=== PATIENT | female | born 1975 | race Caucasian/White ===

== ENCOUNTER 2017-02-14 23:20 | Emergency (ER) | payer SELFPAY ==
[~2017-02-14] VITALS: Ht 154.9 cm; Wt 80.0 kg
[2017-02-15] MEDS ORDERED: SODIUM CHLORIDE 0.9% 1,000 ML IV ONE (01:51)
[2017-02-15 02:33] LABS: NT PRO B-TYPE NATRIURETIC PEP 71 pg/mL (5-125); TROPONIN I < 0.02 ng/mL (0.00-0.04)
[2017-02-15 02:51] LABS: BASOPHILS % 0.9 % (0.0-2.0); DIFFERENTIAL COMMENT 0; EOSINOPHILS % 1.5 % (0.0-5.0); HEMATOCRIT. 41.8 % (36.0-48.0); HEMOGLOBIN. 13.6 g/dL (12.0-16.0); LYMPHOCYTES % 33.9 % (20.0-50.0); MEAN CORPUSCULAR HEMOGLOBIN 25.1 pg (28.0-32.0); MEAN CORPUSCULAR HGB CONC 32.6 g/dL (31.0-37.0); MEAN PLATELET VOLUME 11.2 fl (7.4-10.4); MONOCYTES % 6.7 % (2.0-8.0); PLATELET 135 x1000/uL (130-400); RED BLOOD CELL COUNT 5.42 mill/uL (4.2-5.4); RED CELL DISTRIBUTION WIDTH 14.4 % (11.6-14.6); WHITE BLOOD COUNT 11.8 x1000/uL (4.5-11.0)
[2017-02-15 03:08] LABS: GLUCOSE URINE 3+ (NEGATIVE); KETONES URINE NEGATIVE (NEGATIVE); LEUKOCYTE ESTERASE URINE NEGATIVE (NEGATIVE); NITRITE URINE NEGATIVE (NEGATIVE); OCCULT BLOOD URINE NEGATIVE (NEGATIVE); PH URINE 7.5 (4.5-8.0); PROTEIN URINE NEGATIVE (NEGATIVE); SPECIFIC GRAVITY URINE 1.029 (1.005-1.030)
[2017-02-15 03:09] LABS: CLARITY URINE CLEAR (CLEAR); COLOR URINE YELLOW (YELLOW)
[2017-02-15] MEDS ORDERED: KETOROLAC 30MG/ML VIAL IV ONE (03:45)
[2017-02-15 03:59] LABS: ALANINE AMINOTRANSFERASE 40 IU/L (13-61); ALBUMIN 3.4 g/dL (3.4-5.0); CALCIUM 8.6 mg/dL (8.5-10.1); CARBON DIOXIDE 23 mEq/L (21-32); CHLORIDE 101 mEq/L (98-107); INDEX HEMOLYSI 1 (1-3); INDEX ICTERIC 1 (1-4); INDEX LIPEMIC 1 (1-3); UREA NITROGEN BLOOD 8 mg/dL (7-21); eGFR > 60 mL/min (>60)
[2017-02-15 04:02] LABS: ANION GAP 16
[2017-02-15 04:31] VITALS: BP 115/75
[2017-02-15 04:51] LABS: SQUAMOUS EPITHELIAL CELL URINE FEW /lpf (RARE/1+)
[2017-02-15 04:52] LABS: RBC URINE 0-2 /hpf (0-2)
[2017-02-15 04:54] LABS: BACTERIA URINE TRACE
== END 2017-02-15 06:30 | disposition home or self-care (01) ==
LOC: ER 23:21
DX: R21 Rash and other nonspecific skin eruption (principal); R73.9 Hyperglycemia, unspecified; E11.65 Type 2 diabetes mellitus with hyperglycemia; R55 Syncope and collapse; F17.200 Nicotine dependence, unspecified, uncomplicated; R51 Headache
CPT/HCPCS: 36415; 71010; 80053; 81001; 82962; 83880; 84484; 85025; 93005; 96361; 96374; 99285; J1885; J7030; Z7610

== ENCOUNTER 2019-03-25 19:31 | Emergency (ER) | payer MEDICAID ==
[~2019-03-25] VITALS: Ht 149.9 cm; Wt 78.6 kg
[2019-03-25 20:23] LABS: CLARITY URINE CLEAR (CLEAR); COLOR URINE YELLOW (YELLOW); KETONES URINE NEGATIVE (NEGATIVE); LEUKOCYTE ESTERASE URINE NEGATIVE (NEGATIVE); NITRITE URINE POSITIVE (NEGATIVE); OCCULT BLOOD URINE TRACE (NEGATIVE); PH URINE 6.5 (4.5-8.0); PROTEIN URINE NEGATIVE (NEGATIVE); SPECIFIC GRAVITY URINE 1.038 (1.005-1.030)
[2019-03-25] MEDS ORDERED: ACETAMINOPHEN 325MG TABLET PO ONE (22:45)
[2019-03-26 00:49] VITALS: BP 124/72
== END 2019-03-26 02:08 | disposition home or self-care (01) ==
LOC: ER 19:31
DX: S06.0X0A Concussion without loss of consciousness, initial encounter (principal); S40.022A Contusion of left upper arm, initial encounter; M79.602 Pain in left arm; E11.9 Type 2 diabetes mellitus without complications; F15.10 Other stimulant abuse, uncomplicated; X58.XXXA Exposure to other specified factors, initial encounter; Y93.89 Activity, other specified; Y92.89 Other specified places as the place of occurrence of the external cause; Y99.8 Other external cause status
CPT/HCPCS: 73090; 81025; 93005; 99284